=== PATIENT | female | born 1985 | race Caucasian/White ===

== ENCOUNTER 2016-11-24 13:19 | Inpatient (IN) | payer OTHER ==
[~2016-11-24] VITALS: Ht 167.6 cm; Wt 58.5 kg
[2016-11-25 00:25] VITALS: BP 109/92
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
[2016-11-25] MEDS ORDERED: LOPERAMIDE HCL 2 MG CAPSULE PO PRN ×2 (01:00)
[2016-11-25] MEDS ORDERED: DIAZEPAM 10 MG TABLET PO PRN ×2 (01:00)
[2016-11-25] MEDS ORDERED: HYDROXYZINE PAMOATE 25 MG CAPSULE PO PRN (01:00)
[2016-11-25] MEDS ORDERED: MIRALAX 17 GM POWD.PACK PO PRN (01:00)
[2016-11-25] MEDS ORDERED: PROMETHAZINE HCL 25 MG/1 ML VIAL IM PRN (01:00)
[2016-11-25] MEDS ORDERED: THIAMINE HCL 200 MG/2 ML VIAL IM ONE (01:00)
[2016-11-25] MEDS ORDERED: LORAZEPAM 2 MG/1 ML VIAL IM PRN (01:00)
[2016-11-25] MEDS ORDERED: DIAZEPAM 5 MG TABLET PO PRN (01:00)
[2016-11-25] MEDS ORDERED: MAG HYDROX/AL HYDROX/SIMETH 30 ML LIQUID UDC PO PRN (01:00)
[2016-11-25] MEDS ORDERED: MAGNESIUM HYDROXIDE 30 ML LIQUID UDC PO PRN (01:00)
[2016-11-25] MEDS ORDERED: diphenhydrAMINE 50 MG CAPSULE PO PRN (01:00)
[2016-11-25] MEDS: ONDANSETRON ODT 4 MG TAB.RAPDIS SL PRN (01:06)
[2016-11-25] MEDS: IBUPROFEN 400 MG TABLET PO PRN (01:06)
[2016-11-25] MEDS ORDERED: IBUPROFEN 400 MG TABLET ONE (01:08)
[2016-11-25] MEDS ORDERED: ONDANSETRON ODT 4 MG TAB.RAPDIS ONE (01:08)
[2016-11-25] MEDS ORDERED: THIAMINE HCL 200 MG/2 ML VIAL ONE (01:08)
[2016-11-25 01:57] LABS: *URINE HCG, QUAL NEGATIVE (NEGATIVE)
[2016-11-25 02:13] LABS: BASOPHILS % (AUTO) 1.2 % (0.0-2.0); EOSINOPHILS # (AUTO) 0.1 K/uL (0.0-0.7); EOSINOPHILS % (AUTO) 1.7 % (0.0-7.0); HEMATOCRIT 38.6 % (37.0-47.0); HEMOGLOBIN 13.4 g/dL (12.0-16.0); LYMPHOCYTES # (AUTO) 1.2 K/uL (0.8-4.8); LYMPHOCYTES % (AUTO) 40.5 % (20.5-51.5); MEAN CORPUSCULAR HEMOGLOBIN 33.5 uug (27.0-31.0); MEAN CORPUSCULAR HGB CONC 35 g/dL (32.0-37.0); MEAN CORPUSCULAR VOLUME 96.4 fL (81.0-99.0); MONOCYTES # (AUTO) 0.4 K/uL (0.1-1.30); NEUTROPHILS # (AUTO) 1.4 K/uL (1.8-8.9); NEUTROPHILS % (AUTO) 43.6 % (38.5-71.5); PLATELET COUNT (AUTO) 112 K/uL (150-450); RED BLOOD CELL COUNT(AUTO) 4.01 MIL/uL (4.20-5.40); RED CELL DISTRIBUTION WIDTH 13.4 % (11.5-14.5); WHITE BLOOD COUNT (AUTO) 3.1 K/uL (4.0-11.2)
[2016-11-25 02:59] LABS: ALBUMIN 3.7 g/dL (3.4-5.0); BILIRUBIN,TOTAL 0.5 mg/dL (0.2-1.0); CALCIUM 8.2 mg/dL (8.5-10.1); CREATININE 0.7 mg/dL (0.6-1.3); MAGNESIUM 1.6 mg/dL (1.8-2.4); POTASSIUM 3.7 mmol/L (3.5-5.1); TOTAL PROTEIN, SERUM 7.7 g/dL (6.4-8.2)
[2016-11-25 03:41] LABS: HIV-1 p24 ANTIGEN NON REACTIVE (NONREACTIVE); HIV-1/2 ANTIBODY NON REACTIVE (NONREACTIVE)
[2016-11-25 03:45] LABS: THYROID STIMULATING HORMONE 2.711 mIU/mL (0.358-3.740)
[2016-11-25] MEDS ORDERED: CLON2TAB4 PO (03:50)
[2016-11-25] MEDS ORDERED: TRAZ-144 PO (03:50)
[2016-11-25] MEDS ORDERED: RIFA550T PO (03:50)
[2016-11-25 04:00] VITALS: BP 92/56
[2016-11-25 04:24] LABS: *AMPHETAMINE, URINE NEGATIVE (NEGATIVE); *BARBITURATE, URINE NEGATIVE (NEGATIVE); *CANNABINOID, URINE NEGATIVE (NEGATIVE); *COCCAINE, URINE NEGATIVE (NEGATIVE); *OPIATE, URINE NEGATIVE (NEGATIVE); *PHENCYCLIDINE SCREEN,URINE NEGATIVE (NEGATIVE)
[2016-11-25] MEDS ORDERED: NORG1TAB22 PO (06:35)
--- NOTE | 2016-11-25 07:10 | NUR ---
Start of Shift Report from the night nurse: pt is 31 y.o female new admit here for Benzo r/t Klonopin 2-6mg/d PO for a "couple weeks" and EtoH r/t Beer 18 pks for 2months; No taper ordered only PRN's per Dr. Meyer. Hhx: Relapse, Anxiety, Depression, Bipolar and Seizure r/t Etoh w/d 2 yrs ago. Night nurse endorsed to me to get the home medications reconciled by and signed by the pt. Pt is a full code, Vegetarian, allergic to PCN, fall and seizure precautions ordered. V/S stable. Skin is intact with bruise on Right thigh. Night nurse endorsed low Mg with supplement scheduled to be given during my shift. Scheduled Thiamine B1 IM, PRN Zofran and Motrin given last night. Last CIWA 3. Pt is asleep in room. Will cont. to monitor the pt.
--- NOTE | 2016-11-25 07:23 | NUR ---
END OF SHIFT NOTE PATIENT IS A 31 YEAR OLD FEMALE, ADMITTED ON 11/24/16 FOR BENZO/ETOH DEPENDENCE , ARRIVED AT THE UNIT 11/25/16 AT 0025. PATIENT IS FULL HOMER, VEGETARIAN AND ALLERGIC TO PENICILLINS. PATIENT REPORTS PMH OF DEPRESSION, ANXIETY AND BIPOLAR. HISTORY OF SEIZURE (ALCOHOL INDUCED) LAST ONE WAS 2 YEARS AGO, PATIENT'S DRUG OF CHOICE ARE KLONOPIN (PRESCRIBED FOR ANXIETY) 2-6 MG DAILY FOR COUPLE OF WEEKS LAST USE WAS 6 MG ON 11/24/16 AND ETOH (BEER) 18 PACKS DAILY FOR 2 MONTHS. LAST DRINK WAS 2 DRAFT BEER AND "10 MINI BOTTLES" ON 11/24/16. PATIENT WAS PLACED ON FALL/SEIZURE PRECAUTION. PATIENT WAS GIVEN PRN ZOFRAN FOR NAUSEA NO EMESIS , MOTRIN FOR BACK PAIN 03/16 . B1 INJECTION GIVEN ON RIGHT DELTOID. SAFETY MEASURES IN PLACE.CALL LIGHT IN REACH. WILL CONTINUE TO MONITOR. SLEPT 4 HOURS. FLUID INTAKE OF 120 ML. VOIDED X 1.NO BM. LAST CIWA 3.
[2016-11-25 08:00] VITALS: BP 112/78
[2016-11-25] MEDS ORDERED: MAGNESIUM OXIDE 400 MG TABLET PO ONE (09:00)
[2016-11-25] MEDS ORDERED: LORAZEPAM 1 MG TABLET PO PRN ×2 (10:00)
--- NOTE | 2016-11-25 11:00 | NUR ---
Late Medication Administration Pt refused to have 0900 meds while sleeping so medications given late.
--- NOTE | 2016-11-25 11:20 | NUR ---
PRN Medication Administration-1st Ativan Pt wakes up in room in bed with moderate tremors observed, [place], blurred vision, echoing in bilateral ears with moderates sensitivity to sound, anxiety, irritability, V/S stable yet HR 102, flushing, numbness on bilateral feet, unequal pupil dilation with Right 4mm, left 3mm and pt states that she has fallen x3 in the past couple years with unknown exact dates due to alcohol intoxications with concussions causing unequal pupils, CIWA 17; PRN Ativan 2mg, Motrin 400mg PO given as ordered and Dr. Flannery is aware. Addendum: 11/25/16 at 1211 by TRAY LEVY RN Will recommend to endorsed nurse to reassess at 1220
[2016-11-25] MEDS: FOLIC ACID 1 MG TABLET PO SCH (11:26)
[2016-11-25] MEDS: THIAMINE HCL 100 MG TABLET PO SCH (11:26)
[2016-11-25] MEDS: MULTIVITAMINS,THERAPEUTIC TABLET PO SCH (11:26)
--- NOTE | 2016-11-25 12:13 | NUR ---
Endorsement Endorsed to Emily.
--- NOTE | 2016-11-25 12:14 | NUR ---
ASSUMED CARE Patient endorsement report received form primary nurse, all pertinent information discussed. will continue to monitor closely.
[2016-11-25 12:36] VITALS: BP 118/77
[2016-11-25] MEDS: LORAZEPAM 1 MG TABLET PO SCH ×3 (12:38→21:11)
--- NOTE | 2016-11-25 13:34 | NUR ---
MD COMMUNICATION Patient reports muscle cramps and pain on bilateral extremities, area was assessed no redness or swelling noted. Reported symptoms to Dr. Meyer as per MD patient to start on Neurontin 300mg Po TID, and Robaxin 750mg Q8HPRN for muscle cramps. MD unable to input orders at this time, orders were read back and verified with MD, orders were noted and carried out. will continue to monitor closely. safety measures in place. encouraged adequate PO fluid intake as tolerated. Addendum: 11/25/16 at 1336 by JAYJAY HENSON LVN reports 6/10 pain to bilateral LOWER extremities
[2016-11-25] MEDS: GABAPENTIN 300 MG CAPSULE PO SCH ×2 (13:46→16:09)
[2016-11-25] MEDS: METHOCARBAMOL 750 MG TABLET PO PRN (13:46)
[2016-11-25 16:06] VITALS: BP 113/77
--- NOTE | 2016-11-25 18:25 | NUR ---
PRN PHENERGAN Patient noted with one episode of vomiting and c/o increase nausea, patient administered Phenergan IM injection as ordered, well tolerated, will reassess effectiveness of medication. will continue to monitor closely.
--- NOTE | 2016-11-25 18:47 | NUR ---
END OF SHIFT Patient alert and oriented x4, patient compliant with therapeutic plan of care, Patient with admitting Dx: etoh dependence and is currently on a 5 day Ativan taper, patients taper was initiated today with first dose administration at 1300, well tolerated, no ASE noted. 1300 assessment patient presented with tremors, sweats, anxiety, mild agitation, moderate pins and needle sensation to feet, very mild auditory and visual sensitivity with ciwa score of: 16, MD aware, administered medications as ordered; 1700 assessment patient presented with: tremors, sweats, anxiety, mild agitation, mild pins and needle sensation to feet and very mild auditory and visual sensitivity with ciwa score of: 15, MD aware. During shift patient c/o of cramps to bilateral lower extremities and was administered Neurontin and Robaxin as ordered, by Dr. Meyer, medications were effective. , patient was seen by psychiatrist during shift, all medications were administered as ordered. Patient was administered PRN: Phenergan as ordered, endorsed to scene shifter nurse, to monitor for effectiveness, medication administered after patient had one episode of vomiting and and c/o increase nausea. encouraged patient adequate PO fluid intake as tolerated noted with fair appetite patient, encouraged patient to attend group therapies/sessions to learn new coping skills to prevent relapse, preferred to stay in room, patient denies SI/HI. Safety measures in place. Call light with in reach, will continue to monitor closely. Patient endorsement report given to scene shifter nurse, all pertinent information discussed.
--- NOTE | 2016-11-25 19:10 | NUR ---
START OF SHIFT : Patient is 31 years old female, alert and oriented x4, patient compliant with therapeutic plan of care, Patient with admitting Dx: etoh dependence and is currently on a 5 day Ativan taper, started on 11/25/2016. Last CIWA=15 at 16:00. Encouraged patient adequate PO fluid intake as tolerated noted with fair appetite patient, encouraged patient to attend group therapies/sessions to learn new coping skills to prevent relapse, preferred to stay in room, patient denies SI/HI. Safety measures in place. Call light within reach, will continue to monitor closely. Patient endorsement report given to payroll accounting manager nurse, all pertinent information discussed.
--- NOTE | 2016-11-25 19:24 | NUR ---
REASSESSMENT PHENERGAN Patient states decreased nausea, is resting quietly, RR=16 , breathing unlabored and even. Safety measures in place : bed on lowest position with side rails x2 up for safety, call light within reach. Will continue to monitor closely and offer help.
[2016-11-25 20:00] VITALS: BP 109/79
[2016-11-25] MEDS: TRAZODONE 50 MG TABLET PO SCH (21:11)
--- NOTE | 2016-11-26 06:50 | NUR ---
END OF SHIFT NOTE : PATIENT IS A 31 YEAR OLD FEMALE, ADMITTED ON 11/24/16 FOR BENZO/ETOH DEPENDENCE , ARRIVED AT THE UNIT 11/25/16 AT 0025. PATIENT IS FULL CODE, VEGETARIAN AND ALLERGIC TO PENICILLINS. PATIENT REPORTS PMH OF DEPRESSION, ANXIETY AND BIPOLAR. HISTORY OF SEIZURE (ALCOHOL INDUCED) LAST ONE WAS 2 YEARS AGO. Pt remains compliant with the treatment plan. No PRNs were given during my shift. V/S remain WNL. RR=16, even and unlabored, lungs clear upon auscultation, abdomen soft and non- distended. Pt denies nausea, vomiting and diarrhea. LAST CIWA= 5 at 0400 , INTAKE= 550 ml, voided x 1, slept 9 hours. Safety measures in place : bed on lowest position with side rails x2 up for safety, call light within reach. Will continue to monitor closely and offer help.
[2016-11-26 07:12] LABS: BASOPHILS % (AUTO) 0.6 % (0.0-2.0); EOSINOPHILS # (AUTO) 0.1 K/uL (0.0-0.7); EOSINOPHILS % (AUTO) 3.1 % (0.0-7.0); HEMATOCRIT 35.7 % (37.0-47.0); HEMOGLOBIN 12.4 g/dL (12.0-16.0); LYMPHOCYTES % (AUTO) 44.8 % (20.5-51.5); MEAN CORPUSCULAR HEMOGLOBIN 33.7 uug (27.0-31.0); MEAN CORPUSCULAR HGB CONC 35 g/dL (32.0-37.0); MEAN CORPUSCULAR VOLUME 97.1 fL (81.0-99.0); MONOCYTES # (AUTO) 0.1 K/uL (0.1-1.30); MONOCYTES % (AUTO) 6.3 % (0.0-11.0); NEUTROPHILS # (AUTO) 1.1 K/uL (1.8-8.9); NEUTROPHILS % (AUTO) 45.2 % (38.5-71.5); PLATELET COUNT (AUTO) 86 K/uL (150-450); RED BLOOD CELL COUNT(AUTO) 3.67 MIL/uL (4.20-5.40); RED CELL DISTRIBUTION WIDTH 13.6 % (11.5-14.5); WHITE BLOOD COUNT (AUTO) 2.3 K/uL (4.0-11.2)
[2016-11-26 07:15] LABS: ALBUMIN 3.1 g/dL (3.4-5.0); BILIRUBIN,DIRECT 0.3 mg/dL (0.0-0.2); CALCIUM 8.8 mg/dL (8.5-10.1); CREATININE 0.7 mg/dL (0.6-1.3); MAGNESIUM 1.6 mg/dL (1.8-2.4); PHOSPHOROUS 4.3 mg/dL (2.5-4.9); POTASSIUM 3.8 mmol/L (3.5-5.1); TOTAL PROTEIN, SERUM 6.5 g/dL (6.4-8.2)
--- NOTE | 2016-11-26 07:40 | NUR ---
START OF SHIFT NOTE Received report from night nurse, 31 year old female admitted for Benzo/ETOH dependence. Pt is a full code, Vegetarian, allergic to PCN, fall and seizure precautions ordered. Pt reported PMH of Anxiety, Depression, Bipolar and Seizure r/t ETOH w/d 2 yrs ago. V/S stable. Per endorsement pt's Skin is intact with bruise on Right thigh. Pt received PRN Phenergan for nausea noted effective, Slept for 5 hours, Last CIWA-5. Received pt alert awake oriented x4. Pt presented with muscle aches and headache, bilateral tremors. Breathing normal, respiration even and unlabored, lungs clear upon auscultation, abdomen soft and non- distended. Pt denies nausea, vomiting and diarrhea. Safety measures in place , call light within reach. Will continue to monitor.
[2016-11-26 08:00] VITALS: BP 105/64
[2016-11-26] MEDS: FOLIC ACID 1 MG TABLET PO SCH (08:12)
[2016-11-26] MEDS: MULTIVITAMINS,THERAPEUTIC TABLET PO SCH (08:12)
[2016-11-26] MEDS: LORAZEPAM 1 MG TABLET PO SCH ×3 (08:12→20:42)
[2016-11-26] MEDS: THIAMINE HCL 100 MG TABLET PO SCH (08:12)
[2016-11-26] MEDS: METHOCARBAMOL 750 MG TABLET PO PRN (08:20)
[2016-11-26] MEDS: IBUPROFEN 400 MG TABLET PO PRN (08:20)
--- NOTE | 2016-11-26 08:20 | NUR ---
PRN MEDS Pt c/o muscle aches/headache. PRN [id number] tab Po/[id number] tab Po, given as ordered. Will cont to monitor and reassess the pt. safety measures in place, call light within reach.
[2016-11-26] MEDS: PATIENT MAY USE OWN MED- MD OK PO SCH (08:57)
[2016-11-26] MEDS ORDERED: TUBERCULIN,PURIF.PROT.DERIV. 5 TU/0.1 ML TEST ID ONE (09:00)
[2016-11-26] MEDS ORDERED: IBUPROFEN 400 MG TABLET PO PRN (09:15)
--- NOTE | 2016-11-26 09:20 | NUR ---
REASSESSMENT Pt reported medications effective. Will cont to monitor. headache and muscle aches subside.
[2016-11-26] MEDS ORDERED: LORAZEPAM 1 MG TABLET PO ONE (11:15)
--- NOTE | 2016-11-26 11:19 | NUR ---
ATIVAN X 1 DOSE Pt noted with anxiety, diaphoresis, tremors, burning sensation on both lower extremities, light headedness, Last CIWA-10. Pt also was seen by Dr. Flannery with new order for Ativan 2mg x1 dose. Order entered by MD. Administered medication as ordered. Safety measures in place, call light within reach. Will cont to monitor and reassess the pt.
[2016-11-26 11:31] LABS: BAND % (MANUAL) 6 % (0-10); EOSINOPHILS % (MANUAL) 2 % (0-8); LYMPHOCYTES % (MANUAL) 54 % (20-40); MONOCYTES % (MANUAL) 3 % (2-10); NEUTROPHILS % (MANUAL) 35 % (42-75)
[2016-11-26 11:32] LABS: PLATELET ESTIMATE SLIGHT DECREASED
[2016-11-26 12:00] VITALS: BP 104/67
--- NOTE | 2016-11-26 12:19 | NUR ---
REASSESSMENT Upon reassessment pt reported medication effective, CIWA-4, Safety measures in place,Call light within reach. Will cont to monitor.
[2016-11-26] MEDS: GABAPENTIN 300 MG CAPSULE PO SCH ×2 (14:06→20:42)
[2016-11-26] MEDS: DICYCLOMINE HCL 20 MG TABLET PO PRN (14:08)
--- NOTE | 2016-11-26 14:08 | NUR ---
PRN BENTYL Pt c/o stomach cramps no episode of diarrhea reported by the pt, PRN Bentyl 20mg 1 tab Po administered as ordered. Will cont to monitor. Safety measures in place.
[2016-11-26] MEDS ORDERED: MAGNESIUM OXIDE 400 MG TABLET PO ONE ×2 (14:45→16:15)
--- NOTE | 2016-11-26 15:08 | NUR ---
REASSESSMENT Upon assessment pt reported medication effective stomach cramps subside. Will cont to monitor.
[2016-11-26 15:35] LABS: HCV AB <0.1 s/co ratio (0.0-0.9); HEPATITIS B CORE AB, IgM Negative (Negative); HEPATITIS B SURFACE AG Negative (Negative)
[2016-11-26] MEDS: ACETAMINOPHEN 325 MG TABLET PO PRN (15:59)
--- NOTE | 2016-11-26 15:59 | NUR ---
PRN TYLENOL Pt c/o general body aches 12/15, PRN Tylenol 650mg administered as ordered. Safety measures in place, call light within reach. Will cont to monitor.
[2016-11-26 16:00] VITALS: BP 106/73
--- NOTE | 2016-11-26 16:28 | NUR ---
MAG-OX X 1 DOSE Pt's lab result came out noted with low magnesium level 1.6 L, MD aware. Pt medicated with 800mg Po as ordered. Will cont to monitor.
--- NOTE | 2016-11-26 16:59 | NUR ---
REASSESSMENT Pt reported medication effective, pain subside to 1/. Will cont to monitor.
--- NOTE | 2016-11-26 19:01 | NUR ---
END OF SHIFT NOTE Gave report to night nurse, 31 year old female admitted for ETOH/ BENZO dependence. Allergic to PCN, full code, Vegetarian diet. Pt reported PMH of Anxiety,Depression, Bipolar and Seizure r/t ETOH w/d 2 yrs ago. Pt is currently receiving 5 day Ativan taper tolerating well. Skin intact warm and dry to touch. Pt received PRN medication during shift noted to be effective. Vital signs remained stable. Pt remained complaint with treatment. Last CIWA-3. Pt's total intake 1880ml, voided x2. Safety measures in place, call light within reach. Pt endorsed to night nurse in stable condition.
[2016-11-26 20:00] VITALS: BP 105/80
--- NOTE | 2016-11-26 20:00 | NUR ---
1999 Patient received sleeping with eyes closed and respirations prakash at 14. Easily aroused for nurse assess and vital signs. Patient responds to nurse's greeting and introduction with flat, "Hi, what time is is? I hate it that there's no clock in my room". Patient is oriented to person, place, day and her personal situation. Reoriented to date and time. Patient's color is pink and her skin is warm, dry and intact. Lung sounds are clear bilaterally and active bowel sounds are noted X 4 abdominal Quads, per auscultation. Vital signs are: 97.9-89-18 111/76, O2 Sat 100%, CIWA 3. Patient states that she is eating and taking fluids ad pam with no gastric issues so far. Patient did not attend PM group tonight, because she was " tired and sleepy". Patient moves all her extremities fully WNL. Patient offers no requests or c/o anything at this time. Patient was admitted on 11/24/16 for Klonopin and Alcohol (Beer) withdrawal and she is currently on a 5-Day Ativan medication taper, which she is apparently tolerating well so far. Fall/Seizure precautions continue. Bed is locked and in lowest position, bed rails are up X 2 and call light within patient's easy reach.
[2016-11-26] MEDS: TRAZODONE 50 MG TABLET PO SCH (20:44)
[2016-11-27] VITALS: BP 110/79
--- NOTE | 2016-11-27 04:00 | NUR ---
Patient refused V/S, CIWA to be done at this time.
--- NOTE | 2016-11-27 06:30 | NUR ---
0630 Patient had an uneventful night, sleeping at total of 7 hours. Total intake was 855 ml p.o. and she had 1 void and 1 stools. No Prn medications given this shift. V/SS afebrile, CIWA 3. Patient is verbally appropriate and cooperative when awake, though somewhat guarded, hypervigilant and suspicious when communicating with staff at times. Patient is presently sleeping comfortably with eyes closed and respirations quiet, even, unlabored at 14. Patient is in stable condition at this time.
[2016-11-27 07:42] LABS: BASOPHILS % (AUTO) 0.6 % (0.0-2.0); EOSINOPHILS # (AUTO) 0.1 K/uL (0.0-0.7); EOSINOPHILS % (AUTO) 4.8 % (0.0-7.0); HEMATOCRIT 41.6 % (37.0-47.0); HEMOGLOBIN 13.9 g/dL (12.0-16.0); LYMPHOCYTES % (AUTO) 38.9 % (20.5-51.5); MEAN CORPUSCULAR HEMOGLOBIN 32.7 uug (27.0-31.0); MEAN CORPUSCULAR HGB CONC 33 g/dL (32.0-37.0); MEAN CORPUSCULAR VOLUME 97.7 fL (81.0-99.0); MONOCYTES # (AUTO) 0.2 K/uL (0.1-1.30); MONOCYTES % (AUTO) 8.3 % (0.0-11.0); NEUTROPHILS # (AUTO) 1.3 K/uL (1.8-8.9); NEUTROPHILS % (AUTO) 47.4 % (38.5-71.5); PLATELET COUNT (AUTO) 88 K/uL (150-450); RED BLOOD CELL COUNT(AUTO) 4.26 MIL/uL (4.20-5.40); RED CELL DISTRIBUTION WIDTH 13.2 % (11.5-14.5); WHITE BLOOD COUNT (AUTO) 2.6 K/uL (4.0-11.2)
[2016-11-27 08:00] VITALS: BP 138/72
--- NOTE | 2016-11-27 08:00 | NUR ---
START OF SHIFT Pt 31 y/o female admitted for benzo/ etoh dependence. Pt received in room with eyes closed resting on bed, but easily arousable to name. Pt alert and oriented to name, place, and time. Respirations even and unlabored. It was reported that pt slept for 7 hours last night. Bed on lowest position with side rails x2 up for safety. Call light within reach. No distress noted at this time.
[2016-11-27 08:10] LABS: EOSINOPHILS % (MANUAL) 6 % (0-8); LYMPHOCYTES % (MANUAL) 32 % (20-40); MONOCYTES % (MANUAL) 9 % (2-10); NEUTROPHILS % (MANUAL) 53 % (42-75); PLATELET ESTIMATE SLIGHT DECREASED
[2016-11-27 08:18] LABS: ALBUMIN 3.1 g/dL (3.4-5.0); BILIRUBIN,DIRECT 0.3 mg/dL (0.0-0.2); BILIRUBIN,TOTAL 0.8 mg/dL (0.2-1.0); CREATININE 0.7 mg/dL (0.6-1.3); MAGNESIUM 1.9 mg/dL (1.8-2.4); POTASSIUM 3.8 mmol/L (3.5-5.1); TOTAL PROTEIN, SERUM 6.8 g/dL (6.4-8.2)
[2016-11-27 09:16] LABS: FOLIC ACID 17.3 NG/ML (8.6-58.9)
[2016-11-27] MEDS: PATIENT MAY USE OWN MED- MD OK PO SCH (09:38)
[2016-11-27] MEDS: LORAZEPAM 1 MG TABLET PO SCH ×4 (09:38→20:33)
[2016-11-27] MEDS: THIAMINE HCL 100 MG TABLET PO SCH (09:38)
[2016-11-27] MEDS: MULTIVITAMINS,THERAPEUTIC TABLET PO SCH (09:38)
[2016-11-27] MEDS: GABAPENTIN 300 MG CAPSULE PO SCH ×2 (09:38→16:34)
[2016-11-27] MEDS: FOLIC ACID 1 MG TABLET PO SCH (09:38)
[2016-11-27] MEDS: DICYCLOMINE HCL 20 MG TABLET PO PRN (11:19)
--- NOTE | 2016-11-27 11:19 | NUR ---
PRN Pt with c/o stomach cramps. Bentyl po prn per MD order given and tolerated well.
[2016-11-27 12:00] VITALS: BP 119/81
--- NOTE | 2016-11-27 12:19 | NUR ---
PRN TITO Pt observed in room on bed with eyes closed resting, but easily arousable to name.
[2016-11-27 16:00] VITALS: BP 121/85
--- NOTE | 2016-11-27 18:46 | NUR ---
END OF SHIFT Pt 31 y/o female admitted for benzo/ etoh dependence. Pt alert and oriented to name, place, and time. Perrla. Respirations even and unlabored. Pt observed isolative to room throughout the day. Pt with minimal peer interaction. Pt medication compliant and tolerated well. No ASE noted. Bed on lowest position with side rails x2 up for safety. Call light within reach. No distress noted at this time.
[2016-11-27 20:00] VITALS: BP 122/88
--- NOTE | 2016-11-27 20:00 | NUR ---
1999 Patient received awake and sitting up in her bed watching television. Patient returns nurse's greeting with a wave of her hand and, " Hi". Patient's color is pink and her skin is warm, dry and intact. Lung sounds are clear bilaterally per auscultation. Patient is oriented to person, place, day, date and her personal situation. Reoriented to time. Patient states that she continues to eat and take fluids ad pam but she still does not feel up to attending [facility] groups, though she has ambulated around the unit and has been off [facility] floor, she states. Vital signs are: 98.2-97-18 122/88, O2 Sat 97%. CIWA 5. Patient moves al her extremities fully WNL. Patient was admitted on 11/24/16 for Klonopin and Alcohol withdrawal and she is currently on a 5-Day Ativan medication taper, which she is apparently tolerating well. Patient states that she is feeling " okay" overall, but she continues to feel varying degrees of anxiety. Patient denies any pain at this time. Fall/Seizure precautions continue. Bed is locked and in the lowest position, bed rails are up X 2 and call light within patient's easy reach.
[2016-11-27] MEDS: ONDANSETRON ODT 4 MG TAB.RAPDIS SL PRN (20:34)
--- NOTE | 2016-11-27 20:34 | NUR ---
PRN MEDICATIONS: Prn Vistaril 50 mg p.o. given for c/o increasing anxiety and Prn Zofran Odt 4mg SL given per c/o nausea "I think"
[2016-11-27] MEDS ORDERED: GABAPENTIN 300 MG CAPSULE PO SCH (21:00)
[2016-11-27] MEDS: TRAZODONE 50 MG TABLET PO SCH (21:00)
--- NOTE | 2016-11-27 21:34 | NUR ---
REASSESSMENT PRN MEDICATIONS: Patient is awake and lying quietly watching television. Patient states that she is "feeling better now" and she denies any nausea at this time.
[2016-11-28] VITALS: BP 119/83
[2016-11-28] MEDS: TRAZODONE 50 MG TABLET PO SCH ×2 (00:09→21:01)
--- NOTE | 2016-11-28 04:00 | NUR ---
Patient refused V/S, CIWA to be done at this time.
--- NOTE | 2016-11-28 06:30 | NUR ---
0630 Patient had an uneventful night, sleeping a total of 5.25 hours. Total intake was 2,100 ml p.o. and she had 2 voids and 1 stools at bathroom. Prn medications given noted separately per floor protocol. V/SS afebrile, CIWA 5. Patient is cooperative for the most part and she is verbally appropriate, when she is spoken to first, however patient presents emotionally fragile and labile and she is hypervigilant and suspicious at times. Patient is presently resting comfortably with eyes closed and respirations even, unlabored at 14. Patient is in stable condition at this time.
[2016-11-28 08:00] VITALS: BP 103/78
--- NOTE | 2016-11-28 08:00 | NUR ---
START OF SHIFT Pt 31 y/o female admitted for benzo/ etoh dependence. Pt received in room with eyes closed resting on bed, but easily arousable to name. Pt alert and oriented to name, place, and time. Perrla. Respirations even and unlabored. Bilateral hand tremors noted slightly. It was reported that pt slept for 5.25 hours last night. Bed on lowest position with side rails x2 up for safety. Call light within reach. No distress noted at this time.
[2016-11-28] MEDS: GABAPENTIN 300 MG CAPSULE PO SCH ×3 (09:14→21:00)
[2016-11-28] MEDS: FOLIC ACID 1 MG TABLET PO SCH (09:14)
[2016-11-28] MEDS: THIAMINE HCL 100 MG TABLET PO SCH (09:14)
[2016-11-28] MEDS: LORAZEPAM 1 MG TABLET PO SCH ×3 (09:14→21:01)
[2016-11-28] MEDS: MULTIVITAMINS,THERAPEUTIC TABLET PO SCH (09:14)
[2016-11-28] MEDS: PATIENT MAY USE OWN MED- MD OK PO SCH (09:15)
--- NOTE | 2016-11-28 11:00 | NUR ---
NSG ENTRY Pt observed in room on bed watching television. No distress noted at this time.
[2016-11-28 12:00] VITALS: BP 100/71
[2016-11-28] MEDS: BACLOFEN 20 MG TABLET PO SCH ×2 (14:54→21:01)
[2016-11-28 16:00] VITALS: BP 113/83
--- NOTE | 2016-11-28 19:10 | NUR ---
Start of Shift Patient Received. Patient is in her room, awake, alert and verbally responsive. Patient is noted in bed watching TV. Breathing even and non labored. No signs of pain or discomfort noted. Patient is a 31 year old female, admitted on 11/25/16 for ETOH and Benzo Dependence, under the care of Dr. Meyer, she is currently receiving a 5 day Ativan taper. Patient verbalizes allergies to PCN, wishes to be full code, following a regular diet, skin noted intact, on fall and seizure precautions. Past Medical History noted as: Anxiety, Depression, Bipolar, History of Seizures noted 2 years ago, history of falls with concussions x3, Bulimia, and Anorexia. Per endorsement, Patient is compliant with medications and is tolerating plan of care well. All needs attended to promptly. Will continue plan of care as ordered.
--- NOTE | 2016-11-28 19:27 | NUR ---
END OF SHIFT Pt 28 y/o male admitted for heroin and xanax withdrawal. Pt alert and oriented to name, place, and time. Perrla. Skin warm and slightly moist to touch. Respirations even and unlabored. Bilateral hand tremors felt slightly. Pt observed in activity throughout the day. Pt medication compliant and tolerated well. No ASE noted. Pt was seen by Dr. Meyer today. Bed on lowest position with side rails x2 up for safety. Call light within reach. No distress noted at this time.
[2016-11-28 20:58] VITALS: BP 121/84
--- NOTE | 2016-11-28 21:05 | NUR ---
PRN Medication Administration Patient verbalized increased spasms to the neck and lower back area. PRN Baclofen given with routine medications. Patient able to tolerate well will continue to monitor for effectiveness of medication.
--- NOTE | 2016-11-28 23:00 | NUR ---
PRN Medication Reassessment Patient is noted in bed watching TV. Breathing even and non labored. No signs of pain or discomfort noted. Patient able to verbalize "the medication helped, Im slowly making my way to bed.
--- NOTE | 2016-11-29 | NUR ---
Vitals and CIWA Patient refused 0000 vitals prior to bed. Patient verbalized "Ill pass on the vitals tonight." Patient is noted in bed sleeping. Breathing even and non labored. No signs of pain or discomfort noted. Patients respirations noted at 14. CIWA not able to be completed as per order. Will continue to monitor. Addendum: 11/29/16 at 0355 by ACOSTA PATEL LVN Amended: Links added.
--- NOTE | 2016-11-29 04:28 | NUR ---
Vitals and CIWA Patient refused 0400 vitals prior to bed. Patient verbalized "Ill pass on the vitals tonight." Patient is noted in bed sleeping. Breathing even and non labored. No signs of pain or discomfort noted. Patients respirations noted at 14. CIWA not able to be completed as per order. Will continue to monitor. Addendum: 11/29/16 at 2288 by ACOSTA PATEL LVN Amended: Links added.
[2016-11-29 06:59] LABS: HEMATOCRIT 41.5 % (37.0-47.0); HEMOGLOBIN 13.6 g/dL (12.0-16.0); MEAN CORPUSCULAR HEMOGLOBIN 32.2 uug (27.0-31.0); MEAN CORPUSCULAR HGB CONC 33 g/dL (32.0-37.0); MEAN CORPUSCULAR VOLUME 98.4 fL (81.0-99.0); PLATELET COUNT (AUTO) 97 K/uL (150-450); RED BLOOD CELL COUNT(AUTO) 4.21 MIL/uL (4.20-5.40); RED CELL DISTRIBUTION WIDTH 13.2 % (11.5-14.5); WHITE BLOOD COUNT (AUTO) 2.9 K/uL (4.0-11.2)
--- NOTE | 2016-11-29 07:11 | NUR ---
End of Shift Patient is in bed sleeping. Breathing even and non labored. No signs of pain or discomfort noted. Patient is a 31 year old female, admitted on 11/25/16 for ETOH and Benzo Dependence, under the care of Dr. Meyer, she is currently receiving a 5 day Ativan taper. Patient verbalizes allergies to PCN, wishes to be full code, following a regular diet, skin noted intact, on fall and seizure precautions. Past Medical History noted as: Anxiety, Depression, Bipolar, History of Seizures noted 2 years ago, history of falls with concussions x3, Bulimia, and Anorexia. PRN Baclofen given for increased spasms and medication noted to be effective. Patient is compliant with medications and is tolerating plan of care well. All needs attended to promptly. Will endorse to continue plan of care as ordered.
[2016-11-29 07:28] LABS: ALBUMIN 3.1 g/dL (3.4-5.0); BILIRUBIN,DIRECT 0.4 mg/dL (0.0-0.2); CALCIUM 9.2 mg/dL (8.5-10.1); CREATININE 0.7 mg/dL (0.6-1.3); MAGNESIUM 1.9 mg/dL (1.8-2.4); PHOSPHOROUS 4.3 mg/dL (2.5-4.9); POTASSIUM 5.5 mmol/L (3.5-5.1)
[2016-11-29 08:00] VITALS: BP 117/83
--- NOTE | 2016-11-29 08:00 | NUR ---
START OF SHIFT Pt 31 y/o female admitted for benzo/ etoh dependence. Pt received in room with eyes closed resting on bed, but easily arousable to name. Pt alert and oriented to name, place, and time. Perrla. Respirations even and unlabored. Bilateral hand tremors noted slightly. It was reported that pt slept for 6 hours last night. Bed on lowest position with side rails x2 up for safety. Call light within reach. No distress noted at this time.
--- NOTE | 2016-11-29 08:57 | NUR ---
NSG ENTRY LABS: K+=5.5, BUN=1, wbc=2.9. Dr. Flannery made aware.
[2016-11-29] MEDS: LORAZEPAM 1 MG TABLET PO SCH ×2 (08:58→20:07)
[2016-11-29] MEDS: PATIENT MAY USE OWN MED- MD OK PO SCH (08:59)
[2016-11-29] MEDS: GABAPENTIN 300 MG CAPSULE PO SCH ×3 (08:59→20:07)
[2016-11-29] MEDS: THIAMINE HCL 100 MG TABLET PO SCH (08:59)
[2016-11-29] MEDS: MULTIVITAMINS,THERAPEUTIC TABLET PO SCH (08:59)
[2016-11-29] MEDS: FOLIC ACID 1 MG TABLET PO SCH (08:59)
[2016-11-29] MEDS: BACLOFEN 20 MG TABLET PO PRN ×2 (09:03→20:08)
--- NOTE | 2016-11-29 09:30 | NUR ---
PRN Pt with c/o aches of neck and back 03/16. Robaxin po prn per MD order given and tolerated well.
--- NOTE | 2016-11-29 10:30 | NUR ---
NHAN FRANCIS Pt observed in room with eyes closed resting, but easily arousable to name. No distress noted at this time.
[2016-11-29 11:14] LABS: BASOPHILS % (AUTO) 0.8 % (0.0-2.0); EOSINOPHILS % (AUTO) 3.5 % (0.0-7.0); LYMPHOCYTES % (AUTO) 45.9 % (20.5-51.5); MONOCYTES % (AUTO) 17.4 % (0.0-11.0); NEUTROPHILS % (AUTO) 32.4 % (38.5-71.5)
[2016-11-29 11:38] LABS: NEUTROPHILS % (MANUAL) 0 % (42-75)
[2016-11-29 12:00] VITALS: BP 113/88
--- NOTE | 2016-11-29 13:24 | NUR ---
NSG ENTRY Encouraged pt if she would like to take medication that Dr. Flannery will offer for K+=5.5, but pt refused.
[2016-11-29 16:00] VITALS: BP 121/97
--- NOTE | 2016-11-29 19:05 | NUR ---
Start of Shift Patient Received. Patient is in her room, awake, alert and verbally responsive. Patient is noted in bed watching TV. Breathing even and non labored. No signs of pain or discomfort noted. Patient is a 31 year old female, admitted on 11/25/16 for ETOH and Benzo Dependence, under the care of Dr. Meyer, she is currently receiving a 5 day Ativan taper. Patient verbalizes allergies to PCN, wishes to be full code, following a regular diet, skin noted intact, on fall and seizure precautions. Past Medical History noted as: Anxiety, Depression, Bipolar, History of Seizures noted 2 years ago, history of falls with concussions x3, Bulimia, and Anorexia. Per endorsement, Patients lab work resulted and Potassium noted to be elevated at 5.5. Medication offered by MD and patient noted to refused. New orders for labs to be drawn in the morning 11/30/16. Patient encouraged to participate in group activities but is noted to remain in her room. All needs attended to promptly. Will continue plan of care as ordered.
--- NOTE | 2016-11-29 19:22 | NUR ---
END OF SHIFT Pt 31 y/o female admitted for benzo/ etoh dependence. Pt alert and oriented to name, place, and time. P[place]. Skin warm and dry to touch. Respirations even and unlabored. Pt observed isolative to room throughout the day. Pt with minimal peer interaction. Pt medication compliant and tolerated well. No ASE noted. Pt was seen by Dr. Flannery today. Bed on lowest position with side rails x2 up for safety. Call light within reach. No distress noted at this time.
[2016-11-29 20:00] VITALS: BP 131/98
[2016-11-29] MEDS: TRAZODONE 50 MG TABLET PO SCH (20:07)
--- NOTE | 2016-11-29 20:10 | NUR ---
PRN Medication Administration Patient verbalized increased spasms to the neck and lower back area. PRN Baclofen given with routine medications. Patient able to tolerate well will continue to monitor for effectivenss of medications.
--- NOTE | 2016-11-29 21:30 | NUR ---
PRN Medication Reassessment Patient is noted in bed watching TV. Breathing even and non labored. No signs of pain or discomfort noted. Vital signs rendered and patient noted with elevated BP of 140/102. Patient verbalizes "I just feel very irritable and nervous." Patient able to verbalize back spasms minimized.
[2016-11-29 21:33] VITALS: BP 140/102
[2016-11-29] MEDS: CLONIDINE HCL 0.1 MG TABLET PO PRN (21:54)
--- NOTE | 2016-11-29 21:55 | NUR ---
PRN Medication Administration Patient noted with elevated BP of 140/102. PRN Clonidine given and able to tolerate well. Will continue to monitor for effectiveness.
[2016-11-29 22:43] VITALS: BP 123/83
--- NOTE | 2016-11-29 22:50 | NUR ---
PRN Medication Reassessment Patient noted in her bed, awake, alert and verbally responsive. Breathing even and non labored. No signs of pain or discomfort noted. Vitals Reassessed and BP noted at 121/83. PRN Clonidine noted to be effective. All needs attended to promptly. Will continue plan of care as ordered.
--- NOTE | 2016-11-30 00:55 | NUR ---
Vitals and CIWA Patient refused 0000 vitals prior to bed. Patient verbalized "If im sleeping them ill pass." Patient is noted in bed sleeping. Breathing even and non labored. No signs of pain or discomfort noted. Patients respirations noted at 14. CIWA not able to be completed as per order. Will continue to monitor. Addendum: 11/30/16 at 0055 by ACOSTA PATEL LVN Amended: Links added.
--- NOTE | 2016-11-30 04:15 | NUR ---
Vitals and CIWA Patient refused 0400 vitals prior to bed. Patient verbalized "If Im Sleeping then I'll pass." Patient is noted in bed sleeping. Breathing even and non labored. No signs of pain or discomfort noted. Patients respirations noted at 14. CIWA not able to be completed as per order. Will continue to monitor. Addendum: 11/30/16 at 0937 by ACOSTA PATEL LVN Amended: Links added.
--- NOTE | 2016-11-30 07:22 | NUR ---
End of Shift Patient is in bed sleeping. Breathing even and non labored. No signs of pain or discomfort noted. Patient is a 31 year old female, admitted on 11/25/16 for ETOH and Benzo Dependence, under the care of Dr. Meyer, she is currently receiving a 5 day Ativan taper. Patient verbalizes allergies to PCN, wishes to be full code, following a regular diet, skin noted intact, on fall and seizure precautions. Past Medical History noted as: Anxiety, Depression, Bipolar, History of Seizures noted 2 years ago, history of falls with concussions x3, Bulimia, and Anorexia. PRN Baclofen given for increased spasms and PRN Clonidine 0.1mg given for elevated BP. Both PRN medication noted to be effective. Patient is compliant with medications and is tolerating plan of care well. All needs attended to promptly. Will endorse to continue plan of care as ordered.
--- NOTE | 2016-11-30 07:45 | NUR ---
START OF SHIFT Pt is a 31 yr old female, AA&Ox3. Pt was admitted on 11/24/16 for ETOH/Benzo Dependence and has completed 5 day Ativan taper as ordered. Pt is full code, Vegetarian diet and allergies to PCN. Pt reports of PMH of Anxiety, Depression, Bipolar d/o, Seizures and eating d/o. Pt received Baclofen and Clonidine PRN during the night. Medication was effective. Pt slept for 5 hrs. Last CIWA score was 7. Pt is c/o at this time increase anxiety. skin is intact, warm and dry to touch. Fine tremors are seen. pt denies any n/v. Pt is c/o headache 01/14. Encouraged increase fluid intake. Will f/u with eMAR. Safety precautions observed. Call light is within reach. Will continue to monitor.
[2016-11-30 07:57] LABS: HEMATOCRIT 42.2 % (37.0-47.0); MEAN CORPUSCULAR HEMOGLOBIN 32.6 uug (27.0-31.0); MEAN CORPUSCULAR HGB CONC 33 g/dL (32.0-37.0); MEAN CORPUSCULAR VOLUME 98.6 fL (81.0-99.0); PLATELET COUNT (AUTO) 108 K/uL (150-450); RED BLOOD CELL COUNT(AUTO) 4.28 MIL/uL (4.20-5.40); RED CELL DISTRIBUTION WIDTH 13.4 % (11.5-14.5); WHITE BLOOD COUNT (AUTO) 3.2 K/uL (4.0-11.2)
[2016-11-30 08:00] VITALS: BP 114/74
[2016-11-30 08:10] LABS: CALCIUM 9.5 mg/dL (8.5-10.1); CREATININE 0.7 mg/dL (0.6-1.3); MAGNESIUM 1.9 mg/dL (1.8-2.4)
[2016-11-30] MEDS: PATIENT MAY USE OWN MED- MD OK PO SCH (08:48)
[2016-11-30] MEDS: FOLIC ACID 1 MG TABLET PO SCH (08:48)
[2016-11-30] MEDS: THIAMINE HCL 100 MG TABLET PO SCH (08:48)
[2016-11-30] MEDS: GABAPENTIN 300 MG CAPSULE PO SCH ×3 (08:49→21:00)
[2016-11-30] MEDS: MULTIVITAMINS,THERAPEUTIC TABLET PO SCH (08:49)
[2016-11-30] MEDS: BACLOFEN 20 MG TABLET PO PRN ×2 (09:05→20:59)
[2016-11-30] MEDS: CLONIDINE HCL 0.1 MG TABLET PO PRN (09:06)
--- NOTE | 2016-11-30 09:06 | NUR ---
PRN'S MEDS GIVEN Pt c/o increase anxiety. Fine tremors were observed. Pt c/o cold chills and headache. Pt received Clonidine 0.1mg and Baclofen 20mg PO PRN as ordered. Medication kuldeep well. Encouraged increase fluid intake. Will continue to monitor.
[2016-11-30] MEDS: CITALOPRAM 20 MG TABLET PO SCH (09:31)
--- NOTE | 2016-11-30 10:06 | NUR ---
PRN RE-ASSESSMENT Baclofen PRN and Clonidine PRN was effective. Pt states, "I feel much better". Encouraged increase fluids. Will continue to monitor.
[2016-11-30 10:18] LABS: *BENZODIAZEPINES Negative (Cutoff=300)
[2016-11-30 12:00] VITALS: BP 97/68
[2016-11-30 12:22] LABS: BASOPHILS % (AUTO) 0.8 % (0.0-2.0); EOSINOPHILS % (AUTO) 3.2 % (0.0-7.0); LYMPHOCYTES % (AUTO) 46.4 % (20.5-51.5); NEUTROPHILS % (AUTO) 31.6 % (38.5-71.5)
[2016-11-30 12:24] LABS: LYMPHOCYTES % (MANUAL) 0 % (20-40); NEUTROPHILS % (MANUAL) 0 % (42-75)
[2016-11-30] MEDS: CLONIDINE HCL 0.1 MG TABLET PO SCH ×2 (14:20→20:59)
[2016-11-30] MEDS ORDERED: DICYCLOMINE HCL 20 MG TABLET PO PRN (15:00)
[2016-11-30] MEDS ORDERED: DICYCLOMINE HCL 20 MG TABLET PO SCH (15:00)
[2016-11-30 16:00] VITALS: BP 102/64
[2016-11-30] MEDS ORDERED: LORAZEPAM 1 MG TABLET PO ONE (18:45)
--- NOTE | 2016-11-30 19:05 | NUR ---
Start of Shift Patient Received. Patient is in her room, awake, alert and verbally responsive. Patient is in bed watching TV, noted to be emotional and guarded. Breathing even and non labored. No signs of pain or discomfort noted. Patient is a 31 year old female, admitted on 11/25/16 for ETOH and Benzo Dependence, under the care of Dr. Meyer, she is currently receiving a 5 day Ativan taper. Patient verbalizes allergies to PCN, wishes to be full code, following a regular diet, skin noted intact, on fall and seizure precautions. Past Medical History noted as: Anxiety, Depression, Bipolar, History of Seizures noted 2 years ago, history of falls with concussions x3, Bulimia, and Anorexia. Per endorsement, Discharge orders currently on hold due to patient verbalizing increased signs and symptoms of withdrawal. labs drawn and Potassium noted to be within range. Clonidine 0.1 changed from PRN to Routine. Patient was given PRN Ativan 1mg x1 dose upon shift change. Will reassess for effectiveness of medication. All needs attended to promptly. Will continue plan of care as ordered.
--- NOTE | 2016-11-30 19:34 | NUR ---
END OF SHIFT Pt is a 31 yr old female, AA&Ox3. Pt was admitted on 11/24/16 for ETOH/Benzo Dependence and has completed 5 day Ativan taper as ordered. Pt is full code, Vegetarian diet and allergies to PCN. Pt reports of PMH of Anxiety, Depression, Bipolar d/o, Seizures and eating d/o. Pt has been cooperative with medication regime. Pt has been c/o increase anxiety during the day and refused to attended any group session. Pt is observed with flat effect. Pt received Baclofen and Clonidine PRN at 0906 for anxiety and headache. Medication was effective. Pt was also started on Celexa for anxiety by Dr. Gallegos. Last CIWA score was 3 at 1600. Pt continues to c/o anxiety. Dr. Flannery was made aware and spoke with Pt, with new order for Ativan 1mg PO x1. Medication was given at this time. Endorsed to shift production supervisor nurse to assess. Skin is intact, warm and dry to touch. Fine tremors are seen. Pt denies any n/v. Encouraged increase fluid intake. Safety precautions observed. Call light is within reach.
[2016-11-30 20:02] VITALS: BP 105/70
[2016-11-30] MEDS: TRAZODONE 50 MG TABLET PO SCH (20:59)
--- NOTE | 2016-11-30 21:00 | NUR ---
PRN Medication Administration Patient verbalized increased spasms to lower back area. PRN Baclofen given with routine medications. Patient is able to tolerate well will continue to monitor for effectivenss of medications.
--- NOTE | 2016-11-30 22:30 | NUR ---
PRN Medication Reassessment Patient is noted in bed sleeping. Breathing even and non labored. No signs of pain or discomfort noted. Patient given PRN Baclofen for increased muscle spasms. Patient noted to be resting comfortably. Will continue to monitor.
--- NOTE | 2016-12-01 00:22 | NUR ---
Vitals and CIWA Patient refused 0000 vitals prior to bed. Patient verbalized "If Im wake we can do the vitals." Patient is noted in bed sleeping. Breathing even and non labored. No signs of pain or discomfort noted. Patients respirations noted at 14. CIWA not able to be completed as per order. Will continue to monitor. Addendum: 12/01/16 at 0023 by ACOSTA PATEL LVN Amended: Links added.
--- NOTE | 2016-12-01 04:35 | NUR ---
Vitals and CIWA Patient refused 0400 vitals prior to bed. Patient verbalized "If Im wake we can do the vitals." Patient is noted in bed sleeping. Breathing even and non labored. No signs of pain or discomfort noted. Patients respirations noted at 14. CIWA not able to be completed as per order. Will continue to monitor. Addendum: 12/01/16 at 0436 by ACOSTA PATEL LVN Amended: Links added.
--- NOTE | 2016-12-01 07:45 | NUR ---
START OF SHIFT Pt is a 31 yr old female, AA&Ox3. Pt was admitted on 11/24/16 for ETOH/Benzo Dependence and has completed 5 day Ativan taper as ordered. Pt is full code, Vegetarian diet and allergies to PCN. Pt reports of PMH of Anxiety, Depression, Bipolar d/o, Seizures and eating d/o. Pt received Baclofen PRN during the night. Medication was effective. Pt slept for 7 hrs. Last CIWA score was 6. Pt remains in bed resting with respirations even and unlabored. No acute distress noted. Skin is intact, warm and dry to touch. Pt denies any n/v. Encouraged increase fluid intake. Safety precautions observed. Call light is within reach. Will continue to monitor.
[2016-12-01 08:00] VITALS: BP 103/79
[2016-12-01] MEDS: FOLIC ACID 1 MG TABLET PO SCH (08:55)
[2016-12-01] MEDS: CLONIDINE HCL 0.1 MG TABLET PO SCH ×3 (08:55→21:00)
[2016-12-01] MEDS: MULTIVITAMINS,THERAPEUTIC TABLET PO SCH (08:55)
[2016-12-01] MEDS: THIAMINE HCL 100 MG TABLET PO SCH (08:55)
[2016-12-01] MEDS: GABAPENTIN 300 MG CAPSULE PO SCH ×3 (08:55→21:00)
[2016-12-01] MEDS: CITALOPRAM 20 MG TABLET PO SCH (08:55)
[2016-12-01] MEDS: BACLOFEN 20 MG TABLET PO PRN (09:02)
--- NOTE | 2016-12-01 09:02 | NUR ---
PRN MED GIVEN Pt c/o generalized body aching 01/14. Baclofen 20mg PO PRN was given as ordered. Medication kuldeep well. encouraged increase fluid intake. Will continue to monitor.
[2016-12-01] MEDS: PATIENT MAY USE OWN MED- MD OK PO SCH (09:03)
--- NOTE | 2016-12-01 10:02 | NUR ---
PRN RE-ASSESSMENT Baclofen PRN was effective. Pt denies any pain or discomfort at this time. Encouraged increase fludi intake. Will continue to monitor
[2016-12-01 12:00] VITALS: BP 87/59
[2016-12-01 15:07] VITALS: BP 111/79
[2016-12-01 16:00] VITALS: BP 111/79
[2016-12-01 16:35] LABS: *AMPHETAMINE, URINE NEGATIVE (NEGATIVE); *BARBITURATE, URINE NEGATIVE (NEGATIVE); *CANNABINOID, URINE POSITIVE (NEGATIVE); *COCCAINE, URINE NEGATIVE (NEGATIVE); *OPIATE, URINE NEGATIVE (NEGATIVE); *PHENCYCLIDINE SCREEN,URINE NEGATIVE (NEGATIVE)
--- NOTE | 2016-12-01 19:10 | NUR ---
END OF SHIFT Pt is a 31 yr old female, AA&Ox3. Pt was admitted on 11/24/16 for ETOH/Benzo Dependence and has completed 5 day Ativan taper as ordered. Pt is full code, Vegetarian diet and allergies to PCN. Pt reports of PMH of Anxiety, Depression, Bipolar d/o, Seizures and eating d/o. Pt has been cooperative with medication regime. Pt refused to attended any group session and remained in her room throughout the day. Pt is observed with flat effect. Pt received Baclofen at 0902 for muscle aching. Medication was effective. Last CIWA score was 3 at 1600. No acute distress noted. Skin is intact, warm and dry to touch. Fine tremors are seen. Pt denies any n/v. Encouraged increase fluid intake. Pt is to be discharged tomorrow on 12/02/16. UDS is complete and in chart. Safety precautions observed. Call light is within reach.
--- NOTE | 2016-12-01 19:50 | NUR ---
START OF SHIFT NOTE Received report from day shift nurse. Pt is 31 y o female, admitted on 11/24/16 for Klonopin (2-6 mg weekly), and ETOH (18 packs of beer daily for 2 months) dependence. Pt completed 5 day Ativan taper, scheduled for discharge 12/02/16. Pt aaox4, reports mild anxiety r/t discharge. Enforced on relaxation techniques, verbalized understanding. No tremors observed, pt denies tingling/ burning. Skin intact, warm, dry. RR unlabored, lung sounds clear. Heart rate regular. Pt denies n/v, last BM 12/01/16. PMH of anxiety, depression, bipolar, ETOH-induced seizure. Pt is on fall and seizure precautions. CAll light within reach, side rails up x 2, bed locked in lowest position. Will continue with plan of care.
[2016-12-01 20:00] VITALS: BP 92/65
[2016-12-01] MEDS: TRAZODONE 50 MG TABLET PO SCH (21:00)
[2016-12-01] MEDS: ACETAMINOPHEN 325 MG TABLET PO PRN (21:01)
--- NOTE | 2016-12-01 21:05 | NUR ---
PRN TYLENOL Pt in c/o headache and neck pain 11/14. Administered Tylenol rn PO as ordered. Will continue to monitor
--- NOTE | 2016-12-01 22:00 | NUR ---
REASSESSMENT Pt reports pain subsided, Tylenol was effective. All needs met
--- NOTE | 2016-12-02 | NUR ---
VS, COWS, CIWA Pt refused VS and COWS/ CIWA assessment, state he wants to sleep and not to be bothered. Pt asleep, RR even and unlabored at 17 breaths per minute. Side rails up x 2, call light within reach, bed locked in lowest position. Will continue to monitor Addendum: 12/02/16 at 0716 by JOLYNN PEOPLES RN Amended: Links added.
--- NOTE | 2016-12-02 04:00 | NUR ---
VS, COWS, CIWA Pt refused VS and COWS/ CIWA assessment, state he wants to sleep and not to be bothered. Pt asleep, RR even and unlabored at 16 breaths per minute. Side rails up x 2, call light within reach, bed locked in lowest position. Will continue to monitor Addendum: 12/02/16 at 0716 by JOLYNN PEOPLES RN Amended: Links added.
--- NOTE | 2016-12-02 07:30 | NUR ---
END OF SHIFT NOTE Pt is 31 y o female, admitted on 11/24/16 for Klonopin (2-6 mg weekly), and ETOH (18 packs of beer daily for 2 months) dependence. Pt completed 5 day Ativan taper, scheduled for discharge 12/02/16. UDS collected and resulted, discharge orders ready and placed in chart. Pt c/o anxiety, last CIWA 2 at 1999. VSS. Pt received prn Tylenol at 2105, was effective. Pt slept for5 hrs; PO intake 500 ml, urination 1. PMH of anxiety, depression,. Pt is on fall and seizure precautions. Pt full code , regular diet, allergic to PCN and Ceclor. Call light within reach, side rails up x 2, bed locked in lowest position. Report endorsed to days shift
--- NOTE | 2016-12-02 07:57 | NUR ---
BEGINNING OF SHIFT Patient endorsement report received all pertinent information discussed. Patient admitted on 11/24/16 with admitting Dx: bzo/ etoh dependence with substance use history of: Klonopin (2-6 mg weekly), and ETOH (18 packs of beer daily for 2 months) dependence. Pt completed 5 day Ativan taper, scheduled for discharge 12/02/16. UDS collected and resulted, As per shift superintendent patient received PRN: Tylenol, medication was effective, slept for 6 hours. patient educated regarding plan of care for the day and will educate regarding all discharge instructions. safety measures in place. call light with in reach, will continue to monitor closely.
[2016-12-02 08:16] VITALS: BP 100/68
[2016-12-02] MEDS ORDERED: Baclofen PO (08:17)
[2016-12-02] MEDS ORDERED: CLON0.1T14 PO (08:17)
[2016-12-02] MEDS ORDERED: DICY20TA28 PO (08:17)
[2016-12-02] MEDS ORDERED: HYDR-3895 PO (08:17)
[2016-12-02] MEDS ORDERED: Gabapentin PO (08:17)
[2016-12-02] MEDS: FOLIC ACID 1 MG TABLET PO SCH (08:52)
[2016-12-02] MEDS: THIAMINE HCL 100 MG TABLET PO SCH (08:53)
[2016-12-02] MEDS: CITALOPRAM 20 MG TABLET PO SCH (08:53)
[2016-12-02] MEDS: MULTIVITAMINS,THERAPEUTIC TABLET PO SCH (08:53)
[2016-12-02] MEDS: PATIENT MAY USE OWN MED- MD OK PO SCH (08:53)
[2016-12-02 09:07] VITALS: BP 100/68
[2016-12-02] MEDS: GABAPENTIN 300 MG CAPSULE PO SCH (09:07)
[2016-12-02] MEDS: CLONIDINE HCL 0.1 MG TABLET PO SCH (09:07)
--- NOTE | 2016-12-02 10:12 | NUR ---
DISCHARGE Patient discharged off the unit at 1010, prior to discharge, all discharge instructions and teaching were provided to patient with good verbal understanding. Patient noted self motivated towards sobriety, vital signs were stable. all due medications were administered as ordered. Patient with no s/sx of withdrawal. last ciwa score of: 0. Patients home medications, prescriptions, and discharge instructions were placed in patients personal duffel bag. patient off the unit at 1010.
== END 2016-12-02 10:10 | disposition other institution (70) | DRG 895 ==
LOC: SRC 23:55
PROVIDERS: ADMIT Internal Medicine; ATTEND Internal Medicine
PROC: HZ2ZZZZ Detoxification Services for Substance Abuse Treatment (ICD-10-PCS; principal; 2016-11-24)
PROC: HZ31ZZZ Individual Counseling for Substance Abuse Treatment, Behavioral (ICD-10-PCS; 2016-11-26)
DX: F10.230 Alcohol dependence with withdrawal, uncomplicated (principal); K70.10 Alcoholic hepatitis without ascites; F13.230 Sedative, hypnotic or anxiolytic dependence with withdrawal, uncomplicated; Y90.8 Blood alcohol level of 240 mg/100 ml or more; D69.6 Thrombocytopenia, unspecified; F41.0 Panic disorder [episodic paroxysmal anxiety]; E83.42 Hypomagnesemia; F17.210 Nicotine dependence, cigarettes, uncomplicated; F50.9 Eating disorder, unspecified; E88.09 Other disorders of plasma-protein metabolism, not elsewhere classified; D72.819 Decreased white blood cell count, unspecified; H10.89 Other conjunctivitis; D53.9 Nutritional anemia, unspecified; F31.9 Bipolar disorder, unspecified; E87.5 Hyperkalemia
CPT/HCPCS: 36415; 80307; 80346; 82746; 83690; 83735; 84100; 84443; 84703; 85025; 85610; 86580; 86592; 86705; 86803; 87340; 87806; G6040-TC; J2550; J3411; Q0162